=== PATIENT | male | born 1985 | race Caucasian/White ===

== ENCOUNTER 2016-08-15 21:57 | Emergency (ER) | payer OTHER ==
[~2016-08-15] VITALS: Ht 170.2 cm; Wt 98.1 kg
[~2016-08-15 21:57] MED LIST: DICY1TAB26 PO; LOMO PO; Z.0.NO CURRENT MEDS; ZOFR4TAB3 SL
[2016-08-15 22:03] VITALS: BP 129/80; PULSE 64; RESP 16; TEMP 97.8; O2SAT 98
[2016-08-15] MEDS ORDERED: CYCL1TAB29 PO (22:37)
[2016-08-15] MEDS ORDERED: IBUP800T23 PO (22:37)
--- NOTE | 2016-08-15 22:37 | PD ---
HPI Chief Complaint: Musculoskeletal Complaint Time Seen by Provider: 22:10 Travel History International Travel<30 days: No Contact w/Intl Traveler<30days: No Traveled to known affect area: No History of Present Illness HPI 31-year-old male presents emergency department for lower back pain and muscle spasm. Patient reports approximately 3 hours ago while working out at the gym he developed low back pain. He reports the pain as spasming in nature. He reports similar symptoms in the past with previous lumbar strain. He denies numbness or tingling in the lower extremities. No incontinence. No saddle/ groin anesthesia. No difficulty ambulating. PFSH Past Medical History Medical History: Denies Significant Hx Diminished Hearing: No Tetanus Vaccination: < 5 Years Influenza Vaccination: No ?: Not Past Surgical History Surgical History: No Previous Surgery Other Surgery: Yes (FATTY DEPOSTS REMOVED FROM CHEST WALL) Social History Alcohol Use: Yes (SOCIALLY -MIX DRINKS AND BEER) Tobacco Use: No Substance Use: No Allergies-Medications (Allergen,Severity, Reaction): Coded Allergies: No Known Allergies (Unverified , 01/26/12) Reported Meds & Prescriptions Reported Meds & Active Scripts Active Review of Systems Except as stated in HPI: all other systems reviewed are Neg Physical Exam Narrative GENERAL: Well-nourished, well-developed patient. SKIN: Focused skin assessment warm/dry. HEAD: Normocephalic. EYES: No scleral icterus. No injection or drainage. NECK: Supple, trachea midline. No JVD or lymphadenopathy. CARDIOVASCULAR: Regular rate and rhythm without murmurs, gallops, or rubs. RESPIRATORY: Breath sounds equal bilaterally. No accessory muscle use. GASTROINTESTINAL: Abdomen soft, non-tender, nondistended. MUSCULOSKELETAL: No cyanosis, or edema. BACK: without obvious deformity. No CVA tenderness. Left-sided lumbar paraspinous muscle tenderness and spasm. No midline spine tenderness Data Data Last Documented VS Vital Signs Date Time Temp Pulse Resp B/P Pulse Ox O2 Delivery O2 Flow Rate FiO2 08/15/16 22:03 97.8 64 16 129/80 98 MDM Medical Decision Making Medical Screen Exam Complete: Yes Emergency Medical Condition: Yes Differential Diagnosis Lumbar strain with muscle spasm, herniated disc, other Narrative Course 31-year-old male presents emergency department for evaluation of low back pain and muscle spasm. Patient reports similar symptoms in the past. On exam he has no midline tenderness. No sensory or motor deficits of the lower extremity. Patient is tender over the left lumbar paraspinous muscles. Will be treated for lumbar strain. Diagnosis Primary Impression: Lumbar strain Qualified Code: S39.012A - Lumbar strain, initial encounter Referrals: Primary Care Physician Patient Instructions: Back Pain (ED), General Instructions Additional Instructions: Avoid heavy lifting. Take the medications as needed for pain and spasm. Apply heat or ice as needed. Return to the emergency department if he has new or worsening symptoms Scripts Cyclobenzaprine (Flexeril)10 Mg Tab10 Mg PO TID #12 TAB Ref 0 Prov:Dunia Catherine 08/15/16 Ibuprofen 800 Mg [id number] Mg PO Q8H PRN (Pain/Inflammation) #30 TAB Prov:Dunia Catherine 08/15/16 Disposition: 01 DISCHARGE HOME Condition: Stable Dunia Catherine Aug 15, 2016 22:37
[2016-08-15] MEDS ORDERED: CYCLOBENZAPRINE HCL 10 MG TAB PO ONE (22:45)
[2016-08-15] MEDS ORDERED: KETOROLAC TROMETHAMINE 60 MG/2 ML (IM) VIAL IM ONE (22:45)
== END 2016-08-15 22:55 | disposition home or self-care (01) ==
LOC: PHEFT 21:57
DX: S39.012A Strain of muscle, fascia and tendon of lower back, initial encounter (principal); X50.9XXA Other and unspecified overexertion or strenuous movements or postures, initial encounter
CPT/HCPCS: 96372; 99284; J1885